=== PATIENT | female | born 1990 | race Caucasian/White ===

== ENCOUNTER 2018-12-01 16:19 | Outpatient (CLI) | payer MEDICAID, OTHER ==
[~2018-12-01] VITALS: Ht 162.6 cm; Wt 58.6 kg
[2018-12-01 16:59] LABS: MICROSCOPIC INDICATED
[2018-12-01 17:11] LABS: AMPHETAMINE SCREEN, URINE Negative (Negative); BENZODIAZEPINE SCREEN, URINE Negative (Negative); CANNABINOID SCREEN, URINE Positive (Negative); COCAINE SCREEN, URINE Negative (Negative); METHADONE SCREEN, URINE Negative (Negative); OPIATE SCREEN, URINE Negative (Negative)
[2018-12-01 17:19] LABS: BARBITURATE SCREEN, URINE Negative (Negative)
[2018-12-01 18:05] VITALS: BP 98/56
== END 2018-12-01 19:05 | disposition home or self-care (01) ==
LOC: LDOP 16:19
PROVIDERS: ATTEND Obstetrics & Gynecology
DX: O44.23 Partial placenta previa NOS or without hemorrhage, third trimester (principal); O44.43 Low lying placenta NOS or without hemorrhage, third trimester; R10.9 Unspecified abdominal pain; Z3A.28 28 weeks gestation of pregnancy
CPT/HCPCS: 59025; 80307; 81001; 87086; G0463

== ENCOUNTER 2019-01-12 14:58 | Outpatient (CLI) | payer OTHER ==
[~2019-01-12] VITALS: Ht 160 cm; Wt 63.6 kg
[2019-01-12 15:28] VITALS: BP 96/50
[2019-01-12 15:58] LABS: MICROSCOPIC INDICATED
[2019-01-12 16:14] LABS: AMPHETAMINE SCREEN, URINE Negative (Negative); BARBITURATE SCREEN, URINE Negative (Negative); BENZODIAZEPINE SCREEN, URINE Negative (Negative); CANNABINOID SCREEN, URINE Positive (Negative); COCAINE SCREEN, URINE Negative (Negative); METHADONE SCREEN, URINE Negative (Negative); OPIATE SCREEN, URINE Negative (Negative)
== END 2019-01-12 17:12 | disposition home or self-care (01) ==
LOC: LDOP 14:58
PROVIDERS: ATTEND Student in an Organized Health Care Education/Training Program
DX: O26.893 Other specified pregnancy related conditions, third trimester (principal); O21.9 Vomiting of pregnancy, unspecified; Z3A.35 35 weeks gestation of pregnancy
CPT/HCPCS: 59025; 80307; 81001; 87086; 99211; G0463

== ENCOUNTER 2019-11-15 17:42 | Emergency (ER) | payer MEDICAID, OTHER ==
[~2019-11-15] VITALS: Ht 160 cm; Wt 51.4 kg
--- NOTE | 2019-11-15 18:07 | NUR ---
URINE SAMPLE SENT TO LAB. PT GIVEN GOWN AND BLANKETS TO CHANGE FOR EXAM
[2019-11-15 18:28] LABS: MICROSCOPIC INDICATED
[2019-11-15 18:31] LABS: CULTURE INDICATED? NO
[2019-11-15 18:47] LABS: BASOPHILS # (AUTO) 0.04 x10^3/uL (0-0.1); BASOPHILS % (AUTO) 0 % (0-1); EOSINOPHILS # (AUTO) 0.37 x10^3/uL (0-0.4); EOSINOPHILS % (AUTO) 4 % (1-7); LYMPHOCYTES # (AUTO) 1.43 x10^3/uL (1-3.4); LYMPHOCYTES % (AUTO) 15 % (22-44); MD NO; MEAN CORPUSCULAR HGB CONC 32.8 g/dL (32.4-35.8); MEAN CORPUSCULAR VOLUME 91.3 fL (80-100); MEAN PLATELET VOLUME 10.6 fL (7.4-10.4); MONOCYTES # (AUTO) 0.42 x10^3/uL (0.2-0.8); MONOCYTES % (AUTO) 5 % (2-9); NEUTROPHILS # (AUTO) 7.13 x10^3/uL (1.8-6.8); NEUTROPHILS % (AUTO) 76 % (42-75); PLATELET COUNT 169 x10^3/uL (130-400); RED BLOOD COUNT 3.97 x10^6/uL (3.82-5.3); RED CELL DISTRIBUTION WIDTH 13.8 % (9.6-15.2)
[2019-11-15 18:52] VITALS: BP 106/72
[2019-11-15 18:52] LABS: ALBUMIN 3.3 g/dL (3.4-5.0); ANION GAP 5 mmol/L (5-15); CALCIUM 8.6 mg/dL (8.5-10.1); CHLORIDE 109 mmol/L (98-107); CREATININE 0.95 mg/dL (0.55-1.02)
[2019-11-15 18:54] LABS: HCG UR SG 1.022 (1.003-1.030)
[2019-11-15 18:54] LABS: AMPHETAMINE SCREEN, URINE Positive (Negative); BARBITURATE SCREEN, URINE Negative (Negative); BENZODIAZEPINE SCREEN, URINE Negative (Negative); CANNABINOID SCREEN, URINE Positive (Negative); COCAINE SCREEN, URINE Negative (Negative); METHADONE SCREEN, URINE Negative (Negative); OPIATE SCREEN, URINE Negative (Negative)
--- NOTE | 2019-11-15 20:15 | NUR ---
Patient/Caregiver given discharge instructions and they have confirmed that they understand the instructions. Patient ambulatory with steady gait.
== END 2019-11-15 20:17 | disposition home or self-care (01) ==
LOC: ED 18:48
DX: J02.8 Acute pharyngitis due to other specified organisms (principal); M25.512 Pain in left shoulder; F15.129 Other stimulant abuse with intoxication, unspecified; R59.1 Generalized enlarged lymph nodes; J45.909 Unspecified asthma, uncomplicated; F17.200 Nicotine dependence, unspecified, uncomplicated
CPT/HCPCS: 36415; 80048; 80307; 81001; 81025; 82040; 85025; 87491; 87591; 99284

== ENCOUNTER 2019-12-02 05:16 | Emergency (ER) | payer SELFPAY ==
[~2019-12-02] VITALS: Ht 157.5 cm; Wt 54.0 kg
--- NOTE | 2019-12-02 05:42 | NUR ---
Patient presents to ER c/o N/V/D since yesterday morning. Patient has vomited approx 4 times. Patient denies pain. Denies urinary symptoms. Patient is in NAD. Respirations even and unlabored.
[2019-12-02] MEDS ORDERED: ONDANSETRON 2MG/ML, 2ML ONE (05:45)
[2019-12-02] MEDS ORDERED: KETOROLAC 30 MG/1 ML IVPush ONE (06:00)
[2019-12-02] MEDS ORDERED: SODIUM CHLORIDE 0.9% 1,000ML IVBOLUS ONE (06:00)
[2019-12-02] MEDS ORDERED: SODIUM CHLORIDE FLUSH 10ML SYR IVF ONE (06:00)
[2019-12-02] MEDS ORDERED: ONDANSETRON 2MG/ML, 2ML IVPush ONE (06:00)
[2019-12-02] MEDS ORDERED: KETOROLAC 30 MG/1 ML ONE (06:04)
[2019-12-02 06:29] VITALS: BP 110/70
[2019-12-02 07:04] LABS: BASOPHILS # (AUTO) 0.02 x10^3/uL (0-0.1); BASOPHILS % (AUTO) 0 % (0-1); EOSINOPHILS # (AUTO) 0.19 x10^3/uL (0-0.4); EOSINOPHILS % (AUTO) 2 % (1-7); LYMPHOCYTES # (AUTO) 0.91 x10^3/uL (1-3.4); LYMPHOCYTES % (AUTO) 8 % (22-44); MD NO; MEAN CORPUSCULAR HEMOGLOBIN 29.7 pg (27.0-34.8); MEAN CORPUSCULAR VOLUME 90.1 fL (80-100); MONOCYTES # (AUTO) 0.48 x10^3/uL (0.2-0.8); MONOCYTES % (AUTO) 4 % (2-9); NEUTROPHILS # (AUTO) 9.33 x10^3/uL (1.8-6.8); NEUTROPHILS % (AUTO) 85 % (42-75); PLATELET COUNT 226 x10^3/uL (130-400); RED BLOOD COUNT 4.39 x10^6/uL (3.82-5.3); RED CELL DISTRIBUTION WIDTH 13.6 % (9.6-15.2)
--- NOTE | 2019-12-02 07:05 | NUR ---
REPORT FROM RIYA
[2019-12-02 07:10] LABS: ALBUMIN 3.2 g/dL (3.4-5.0); ANION GAP 5 mmol/L (5-15); CALCIUM 7.9 mg/dL (8.5-10.1); CHLORIDE 111 mmol/L (98-107); CREATININE 0.89 mg/dL (0.55-1.02)
[2019-12-02] MEDS ORDERED: METOCLOPRAMIDE 5 MG/ML, 2ML ONE (07:24)
[2019-12-02] MEDS ORDERED: METOCLOPRAMIDE 5 MG/ML, 2ML IVPush ONE (07:30)
--- NOTE | 2019-12-02 07:54 | NUR ---
MEDICATED PER ORDERS. PT SITTING W CHILD. VSS
--- NOTE | 2019-12-02 08:00 | NUR ---
Patient/Caregiver given discharge instructions and they have confirmed that they understand the instructions. Patient ambulatory with steady gait.
== END 2019-12-02 08:16 | disposition home or self-care (01) ==
LOC: ED 06:19
DX: K52.9 Noninfective gastroenteritis and colitis, unspecified (principal); R10.9 Unspecified abdominal pain; R11.2 Nausea with vomiting, unspecified; F17.200 Nicotine dependence, unspecified, uncomplicated; Z98.51 Tubal ligation status
CPT/HCPCS: 36415; 80048; 82040; 85025; 96361; 96374; 96375; 99284; J1885; J2405; J2765; J7030

== ENCOUNTER 2020-06-21 18:13 | Emergency (ER) | payer MEDICAID ==
[~2020-06-21] VITALS: Ht 160 cm; Wt 50.0 kg
[2020-06-21 20:05] VITALS: BP 128/79
== END 2020-06-21 20:07 ==
LOC: ED 19:06
DX: S39.012A Strain of muscle, fascia and tendon of lower back, initial encounter (principal); J06.9 Acute upper respiratory infection, unspecified; R05 Cough; J02.9 Acute pharyngitis, unspecified; M79.10 Myalgia, unspecified site; J45.909 Unspecified asthma, uncomplicated; F17.200 Nicotine dependence, unspecified, uncomplicated; Z98.51 Tubal ligation status; X58.XXXA Exposure to other specified factors, initial encounter; Y93.89 Activity, other specified; Y92.89 Other specified places as the place of occurrence of the external cause; Y99.8 Other external cause status
CPT/HCPCS: 71045; 72110; 72220; 87081; 87635; 87880; 99284

== ENCOUNTER 2021-04-24 20:42 | Inpatient (IN) | payer MEDICAID ==
[~2021-04-24] VITALS: Ht 157.5 cm; Wt 56.4 kg
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
[2021-04-24] MEDS ORDERED: MORPHINE SULFATE 4 MG/ML, 1ML IVPush ONE ×2 (21:00→22:30)
[2021-04-24] MEDS ORDERED: ONDANSETRON 2MG/ML, 2ML IVPush ONE (21:00)
[2021-04-24] MEDS ORDERED: ONDANSETRON 2MG/ML, 2ML ONE ×2 (21:13→23:53)
[2021-04-24] MEDS ORDERED: MORPHINE SULFATE 4 MG/ML, 1ML ONE ×2 (21:13→22:16)
--- NOTE | 2021-04-24 21:16 | NUR ---
PT HAS SWELL AND BRUISING TO RIGHT EYE. EYE IS SWOLLEN SHUT. PT IS ABLE TO SEE OUT OF AFFECTED EYE. PT HAS BLOODY NOSE AND BLOODY LIP. NO OTHER OBVIOUS INJURIES NOTED
--- NOTE | 2021-04-24 21:21 | NUR ---
PT REPORTS SHE DOES NOT WANT TO PRESS CHARGES. PT TO CT
--- NOTE | 2021-04-24 21:29 | NUR ---
PT BACK FROM CT
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
[2021-04-24] MEDS ORDERED: HYDROmorphone 1 MG/ML, 1ML INJ IV ONE (22:30)
[2021-04-24] MEDS ORDERED: HYDROmorphone 2 MG/ML, 1ML ONE (22:30)
--- NOTE | 2021-04-24 22:53 | NUR ---
FAMILY AT BEDSIDE
[2021-04-24] MEDS: predniSOLONE OPHTH SUSP 1%, 5ML RIGHTEYE SCH (23:40)
--- NOTE | 2021-04-24 23:47 | NUR ---
PT PROVIDED BRODIE WARE HOSPITALIST AT BEDSIDE.
[2021-04-24] MEDS ORDERED: CLINDAMYCIN PMX 600MG/50ML 50 ML ONE (23:57)
[2021-04-25] MEDS ORDERED: LABETALOL 5MG/ML, 20ML IVPush PRN
[2021-04-25] MEDS ORDERED: ACETAMINOPHEN 325 MG TABLET PO PRN
[2021-04-25] MEDS ORDERED: CLINDAMYCIN PMX 600MG/50ML 50 ML IV ONE
[2021-04-25] MEDS ORDERED: ONDANSETRON 2MG/ML, 2ML IVPush PRN
--- NOTE | 2021-04-25 00:14 | NUR ---
PT TO ROOM 367. REPORT GIVEN TO LAMBERT QUIJANO
[2021-04-25] MEDS ORDERED: OXYcodone/APAP 5/325MG TABLET ONE (00:18)
--- NOTE | 2021-04-25 00:25 | NUR ---
PT AMBULATED TO RESTROOM AND BACK . REPORTS PAIN. PAIN MED ADMININISTERD. PT FACE SLIGHTLY CLEANSED.
[2021-04-25] MEDS: OXYcodone/APAP 5/325MG TABLET PO PRN ×2 (00:30→07:43)
[2021-04-25] MEDS: HYDROmorphone 2 MG/ML, 1ML IVPush PRN ×2 (02:02→07:01)
[2021-04-25 03:23] VITALS: BP 110/73
[2021-04-25 03:44] VITALS: BP 110/73
[2021-04-25] MEDS ORDERED: CLINDAMYCIN PMX 300MG/50ML 50 ML IV SCH (06:30)
[2021-04-25 07:19] VITALS: BP 102/65
[2021-04-25] MEDS: FAMOTIDINE 20 MG TABLET PO SCH ×2 (07:43)
[2021-04-25] MEDS ORDERED: CYCLOPENTOLATE OPHTH SOLN 1%, 15ML RIGHTEYE SCH (09:00)
[2021-04-25] MEDS ORDERED: SENNA/DOCUSATE TABLET PO SCH (09:00)
[2021-04-25] MEDS: predniSOLONE OPHTH SUSP 1%, 5ML RIGHTEYE SCH (11:56)
[2021-04-25 12:14] VITALS: BP 106/68
== END 2021-04-25 13:08 | disposition left against medical advice (07) | DRG 125 ==
LOC: ED 23:34 → EDIP 23:43 → 3N 04-25 00:58
PROVIDERS: ADMIT Family Medicine; ATTEND Family Medicine
DX: S02.31XA Fracture of orbital floor, right side, initial encounter for closed fracture (principal); S02.40CA Maxillary fracture, right side, initial encounter for closed fracture; S02.40EA Zygomatic fracture, right side, initial encounter for closed fracture; F17.210 Nicotine dependence, cigarettes, uncomplicated; J45.909 Unspecified asthma, uncomplicated; G89.11 Acute pain due to trauma; W18.39XA Other fall on same level, initial encounter; H57.04 Mydriasis; F15.90 Other stimulant use, unspecified, uncomplicated; Z87.11 Personal history of peptic ulcer disease; Z88.0 Allergy status to penicillin; Z56.0 Unemployment, unspecified; Y93.89 Activity, other specified; Y92.89 Other specified places as the place of occurrence of the external cause; Y99.8 Other external cause status
CPT/HCPCS: 70450; 70486; 72125; 96365; 96375; 96376; 99285; J1170; J2405; J2270

== ENCOUNTER 2021-04-25 14:05 | Emergency (ER) | payer MEDICAID ==
[~2021-04-25] VITALS: Ht 160 cm; Wt 55.0 kg
[2021-04-25 17:19] VITALS: BP 131/71
[2021-04-25] MEDS ORDERED: OXYcodone/APAP 10/325MG TABLET ONE (17:26)
[2021-04-25] MEDS ORDERED: OXYcodone/APAP 10/325MG TABLET PO ONE (17:30)
[2021-04-25] MEDS ORDERED: PROPARACAINE OPHTH 0.5%, 15ML ONE (18:02)
== END 2021-04-25 18:43 | disposition home or self-care (01) ==
LOC: ED 14:10
DX: S02.85XA Fracture of orbit, unspecified, initial encounter for closed fracture (principal); S02.40EA Zygomatic fracture, right side, initial encounter for closed fracture; F17.200 Nicotine dependence, unspecified, uncomplicated; X58.XXXA Exposure to other specified factors, initial encounter; Y93.89 Activity, other specified; Y92.009 Unspecified place in unspecified non-institutional (private) residence as the place of occurrence of the external cause; Y99.8 Other external cause status
CPT/HCPCS: 99283